=== PATIENT | male | born 1980 | race African-American/Black ===

== ENCOUNTER 2023-03-03 18:10 | Emergency (ER) | payer OTHER ==
[2023-03-03] MEDS ORDERED: Acetaminophen 325 MG/10.15 ML ML PO ONE (18:39)
[2023-03-03] MEDS ORDERED: Sodium Chloride 0.9% 1,000 ML IV SCH (18:45)
[2023-03-03] MEDS ORDERED: Acetaminophen 325 MG Tab PO ONE (18:47)
[2023-03-03 19:19] LABS: INFLUENZA A NAA NEGATIVE (NEGATIVE)
[2023-03-03 19:37] LABS: CORONAVIRUS COVID-19 NAA POSITIVE (NEGATIVE)
== END 2023-03-03 20:24 | disposition home or self-care (01) ==
LOC: JD.ED 18:10
DX: U07.1 COVID-19 (principal); R03.0 Elevated blood-pressure reading, without diagnosis of hypertension; Z79.899 Other long term (current) drug therapy
CPT/HCPCS: 0240U; 96360; 99284; A9270; J7030

== ENCOUNTER 2023-03-18 16:59 | Emergency (ER) | payer OTHER | END 2023-03-18 18:36 | disposition home or self-care (01) | LOC: JD.ED 16:59 | DX: U07.1 COVID-19 (principal); Z86.16 Personal history of COVID-19 | CPT/HCPCS: 99281; 99282 ==

== ENCOUNTER 2024-09-06 06:47 | Emergency (ER) | payer BC, OTHER ==
[2024-09-06] MEDS: Ibuprofen 600 MG Tab PO ONE (07:30)
== END 2024-09-06 08:35 | disposition home or self-care (01) ==
LOC: JD.ED 06:47
DX: L03.032 Cellulitis of left toe (principal); Z79.899 Other long term (current) drug therapy; Z87.891 Personal history of nicotine dependence
CPT/HCPCS: 73630-26-LT; 73630-LT; 99283; A9270-GY

== ENCOUNTER 2024-11-05 01:28 | Emergency (ER) | payer BC ==
[2024-11-05] MEDS: methylPREDNISolone Sodium Succinate 125 MG/2 ML SDV IM ONE (03:41)
== END 2024-11-05 04:56 | disposition home or self-care (01) ==
LOC: JD.ED 01:28
DX: R21 Rash and other nonspecific skin eruption (principal); Z79.899 Other long term (current) drug therapy; Z86.16 Personal history of COVID-19
CPT/HCPCS: 87651; 96372; 99283; J2919

== ENCOUNTER 2025-02-02 19:53 | Emergency (ER) | payer SELFPAY | END 2025-02-02 21:05 | disposition home or self-care (01) | LOC: JD.ED 19:53 | DX: S41.111A Laceration without foreign body of right upper arm, initial encounter (principal); E66.9 Obesity, unspecified; Z68.38 Body mass index [BMI] 38.0-38.9, adult; Z87.891 Personal history of nicotine dependence; Z86.16 Personal history of COVID-19; Z79.899 Other long term (current) drug therapy; W26.0XXA Contact with knife, initial encounter | CPT/HCPCS: 12002; 99282 ==